=== PATIENT | male | born 1970 | race Caucasian/White ===

== ENCOUNTER 2020-04-28 21:09 | Emergency (ER) | payer OTHER ==
[~2020-04-28] VITALS: Ht 188 cm; Wt 81.2 kg
[2020-04-28 21:17] VITALS: BP 127/77; Ht 188 cm; Wt 81.2 kg
== END 2020-04-29 00:38 | disposition home or self-care (01) ==
LOC: ED 21:09
DX: S16.1XXA Strain of muscle, fascia and tendon at neck level, initial encounter (principal); S39.012A Strain of muscle, fascia and tendon of lower back, initial encounter; S00.93XA Contusion of unspecified part of head, initial encounter; S80.01XA Contusion of right knee, initial encounter; V49.49XA Driver injured in collision with other motor vehicles in traffic accident, initial encounter; Y93.I9 Activity, other involving external motion; Y92.413 State road as the place of occurrence of the external cause; Y99.8 Other external cause status